=== PATIENT | female | born 1970 | race Caucasian/White ===

== ENCOUNTER 2018-07-29 20:11 | Emergency (ER) | payer BC ==
[2018-07-29] MEDS ORDERED: Sodium Chloride 0.9% 10 ML Syringe FLUSH PRN (20:35)
[2018-07-29] MEDS ORDERED: cefTRIAXone 2 GM Vial IVPUSH ONE (21:09)
--- NOTE | 2018-07-29 21:10 | EDM.PDOC ---
ED HPI GENERAL MEDICAL PROBLEM - General Chief Complaint: General Stated Complaint: heartburn Time Seen by Provider: 07/29/18 20:18 Source of Information: Reports: Patient History Limitations: Reports: No Limitations - History of Present Illness INITIAL COMMENTS - FREE TEXT/NARRATIVE: PtLonnie presents to ER with complaints of burning in her chest. She states that she has been experiencing this for several days. She complains of a mild cough. She has felt chills, and feels as though she is "coming down with something" as she is experiencing myalgias in her neck and shoulders. She states that the discomfort is respirophasic in nature, and is worse with palpation of the chest. Denies any nausea or vomiting. No shortness of breath. No hemoptysis. She states that she has had her flu shot this year. Onset Date: 07/27/18 Location: Reports: Chest Quality: Reports: Ache Severity: Severe Worsens with: Reports: Breathing, Movement Associated Symptoms: Denies: Nausea/Vomiting Epigastric Pain Score (Numeric/FACES): 8 - Related Data Allergies Allergy/AdvReac Type Severity Reaction Status Date / Time No Known Allergies Allergy Verified 07/29/18 20:18 Home Meds: Home Meds . [No Known Home Meds] 07/29/18 [History] Past Medical History - Past Surgical History GI Surgical History: Reports: Appendectomy Social & Family History - Tobacco Use Smoking Status *Q: Never Smoker ED ROS GENERAL - Review of Systems Review Of Systems: See Below Constitutional: Reports: No Symptoms HEENT: Reports: No Symptoms Respiratory: Reports: No Symptoms Cardiovascular: Reports: No Symptoms Endocrine: Reports: No Symptoms GI/Abdominal: Reports: No Symptoms : Reports: No Symptoms Musculoskeletal: Reports: Neck Pain, Shoulder Pain, Back Pain, Muscle Pain Skin: Reports: No Symptoms Neurological: Reports: No Symptoms Psychiatric: Reports: No Symptoms Hematologic/Lymphatic: Reports: No Symptoms Immunologic: Reports: No Symptoms ED EXAM, GENERAL - Physical Exam Exam: See Below Exam Limited By: No Limitations General Appearance: Alert, WD/WN, No Apparent Distress Respiratory/Chest: No Respiratory Distress, Decreased Breath Sounds (diminished in the bases), Other (chest is tender on palpation) Cardiovascular: Normal Peripheral Pulses, Regular Rate, Rhythm, No Edema, No Gallop, No JVD, No Murmur, No Rub Peripheral Pulses: 3+: Radial (L), Radial (R) GI/Abdominal: Normal Bowel Sounds, Soft, Non-Tender, No Organomegaly, No Distention, No Abnormal Bruit, No Mass (Female) Exam: Deferred Rectal (Female) Exam: Deferred Back Exam: Normal Inspection, Full Range of Motion, NT Extremities: Normal Inspection, Normal Range of Motion, Non-Tender, Normal Capillary Refill, No Pedal Edema Neurological: Alert, Oriented, CN II-XII Intact, Normal Cognition, Normal Gait, Normal Reflexes, No Motor/Sensory Deficits Psychiatric: Normal Affect, Normal Mood Skin Exam: Warm, Dry, Intact, Normal Color, No Rash EKG INTERPRETATION Rhythm: NSR [place]: Normal P-Wave: Present QRS: Normal ST-T: Normal QT: Normal Course - Vital Signs Last Recorded V/S: Last Vital Signs Temp 37.7 C 07/29/18 20:18 Pulse 95 07/29/18 20:18 Resp 18 07/29/18 20:18 BP 165/93 H 07/29/18 21:33 Pulse Ox 96 07/29/18 20:18 - Orders/Labs/Meds Orders: Active Orders 24 hr Category Date Time Status EKG Documentation Completion [RC] STAT Care 07/29/18 20:36 Active Chest 2V [CR] Stat Exams 07/29/18 20:35 Taken CULTURE BLOOD [BC] Stat Lab 07/29/18 21:00 Received CULTURE BLOOD [BC] Stat Lab 07/29/18 21:05 Received Blood Culture x2 Reflex Set [OM.PC] Stat Oth 07/29/18 20:38 Ordered Peripheral IV Insertion Adult [OM.PC] Routine Oth 07/29/18 20:36 Ordered Labs: Laboratory Tests 07/29/18 07/29/18 07/29/18 Range/Units 21:05 21:05 21:05 WBC 11.4 H (4.0-10.0) x10^3/uL RBC 4.69 (4.00-5.50) x10^6/uL Hgb 14.3 (12.0-16.0) g/dL Hct 41.8 (33.0-47.0) % MCV 89.1 (78.0-93.0) fL MCH 30.5 (26.0-32.0) pg MCHC 34.2 (32.0-36.0) g/dL RDW Coeff of Carly 12.4 (10.0-15.0) % Plt Count 291 (130-400) x10^3/uL Neut % (Auto) 72.4 (50.0-80.0) % Lymph % (Auto) 18.0 L (25.0-50.0) % Jess[place] % (Auto) 6.9 (2.0-11.0) % Eos % (Auto) 2.4 (0.0-4.0) % Baso % (Auto) 0.3 (0.2-1.2) % PT 10.6 (9.6-11.4) SEC INR 1.0 L (2.0-3.5) Sodium 139 (136-145) mmol/L Potassium 3.7 (3.5-5.1) mmol/L Chloride 101 (98-107) mmol/L Carbon Dioxide 29 (21-32) mmol/L Anion Gap 12.7 (10-20) mmol/L BUN 13 (7-18) mg/dL Creatinine 1.0 (0.55-1.02) mg/dL Est Cr Clr Drug Dosing TNP Estimated GFR (MDRD) 59 Glucose 103 (74-106) mg/dL Lactic Acid (0.4-2.0) mmol/L Calcium 9.7 (8.5-10.1) mg/dL Corrected Calcium 9.70 (8.5-10.1) mg/dL Phosphorus 4.9 H (2.6-4.7) mg/dL Magnesium 1.9 (1.8-2.4) mg/dL Total Bilirubin 0.6 (0.2-1.0) mg/dL AST 17 (15-37) U/L ALT 36 (14-59) U/L Alkaline Phosphatase 71 (46-116) U/L Troponin I < 0.017 (<=0.056) ng/mL C-Reactive Protein 3.7 H (<=0.9) mg/dL Total Protein 8.6 H (6.4-8.2) g/dL Albumin 4.0 (3.4-5.0) g/dL Globulin 4.6 Albumin/Globulin Ratio 0.87 07/29/18 Range/Units 21:05 WBC (4.0-10.0) x10^3/uL RBC (4.00-5.50) x10^6/uL Hgb (12.0-16.0) g/dL Hct (33.0-47.0) % MCV (78.0-93.0) fL MCH (26.0-32.0) pg MCHC (32.0-36.0) g/dL RDW Coeff of Carly (10.0-15.0) % Plt Count (130-400) x10^3/uL Neut % (Auto) (50.0-80.0) % Lymph % (Auto) (25.0-50.0) % Jess[place] % (Auto) (2.0-11.0) % Eos % (Auto) (0.0-4.0) % Baso % (Auto) (0.2-1.2) % PT (9.6-11.4) SEC INR (2.0-3.5) Sodium (136-145) mmol/L Potassium (3.5-5.1) mmol/L Chloride (98-107) mmol/L Carbon Dioxide (21-32) mmol/L Anion Gap (10-20) mmol/L BUN (7-18) mg/dL Creatinine (0.55-1.02) mg/dL Est Cr Clr Drug Dosing Estimated GFR (MDRD) Glucose (74-106) mg/dL Lactic Acid 0.8 (0.4-2.0) mmol/L Calcium (8.5-10.1) mg/dL Corrected Calcium (8.5-10.1) mg/dL Phosphorus (2.6-4.7) mg/dL Magnesium (1.8-2.4) mg/dL Total Bilirubin (0.2-1.0) mg/dL AST (15-37) U/L ALT (14-59) U/L Alkaline Phosphatase (46-116) U/L Troponin I (<=0.056) ng/mL C-Reactive Protein (<=0.9) mg/dL Total Protein (6.4-8.2) g/dL Albumin (3.4-5.0) g/dL Globulin Albumin/Globulin Ratio Meds: Medications Discontinued Medications Generic Name Dose Route Start Last Admin Trade Name Freq PRN Reason Stop Dose Admin Hydrocodone Bitart/Acetaminophen 1 packet 07/29/18 22:18 07/29/18 22:24 Take Home: Acetam/Hydrocodon 325-5 Mg, 5 Pack PO 07/29/18 22:19 1 packet ONETIME ONE Administration Ceftriaxone Sodium 2 gm 07/29/18 21:09 07/29/18 21:20 Rocephin IVPUSH 07/29/18 21:10 2 gm STAT ONE Administration Hydromorphone HCl 1 mg 07/29/18 22:17 07/29/18 22:29 Dilaudid IVPUSH 07/29/18 22:18 1 mg ONETIME ONE Administration Ketorolac Tromethamine 15 mg 07/29/18 22:17 07/29/18 22:26 Toradol IVPUSH 07/29/18 22:18 15 mg ONETIME ONE Administration Methylprednisolone Sodium Succinate 125 mg 07/29/18 22:17 07/29/18 22:28 Solu-Medrol IV 07/29/18 22:18 125 mg ONETIME ONE Administration Sodium Chloride 10 ml 07/29/18 20:35 Saline Flush FLUSH ASDIRECTED PRN Keep Vein Open - Radiology Interpretation Free Text/Narrative:: Increased opacification of RML on PA view. Departure - Departure Time of Disposition: 22:38 Disposition: Home, Self-Care 01 Condition: Good Clinical Impression: CAP (community acquired pneumonia), Pleurisy - Discharge Information Instructions: Acetaminophen; Hydrocodone tablets or capsules, Doxycycline tablets or capsules, Pleurisy, [id number], Prednisone tablets, Community- Acquired Pneumonia, Adult, Probiotics Referrals: Merle Key MD [Primary Care Provider] - Forms: ED Department Discharge Additional Instructions: Doxycycline 100mg twice daily Prednisone 40mg once daily [place] 5/325mg once every 4-6 hours as needed for pain Ibuprofen over the counter 200mg-3 tabs every 6 hours as needed for pain Off work tomorrow. Stay off of work until 25 hours after your last fever. - My Orders Last 24 Hours: My Active Orders 07/29/18 20:35 Chest 2V [CR] Stat 07/29/18 20:36 EKG Documentation Completion [RC] STAT Peripheral IV Insertion Adult [OM.PC] Routine 07/29/18 20:38 Blood Culture x2 Reflex Set [OM.PC] Stat 07/29/18 21:00 CULTURE BLOOD [BC] Stat 07/29/18 21:05 CULTURE BLOOD [BC] Stat - Assessment/Plan Last 24 Hours: My Active Orders 07/29/18 20:35 Chest 2V [CR] Stat 07/29/18 20:36 EKG Documentation Completion [RC] STAT Peripheral IV Insertion Adult [OM.PC] Routine 07/29/18 20:38 Blood Culture x2 Reflex Set [OM.PC] Stat 07/29/18 21:00 CULTURE BLOOD [BC] Stat 07/29/18 21:05 CULTURE BLOOD [BC] Stat Plan: Doxycycline 100mg twice daily Prednisone 40mg once daily [place] 5/325mg once every 4-6 hours as needed for pain Ibuprofen over the counter 200mg-3 tabs every 6 hours as needed for pain Off work tomorrow. Stay off of work until 25 hours after your last fever.
[2018-07-29 21:46] LABS: CHLORIDE,CL 101 mmol/L (98-107); SODIUM,NA 139 mmol/L (136-145)
[2018-07-29 21:54] LABS: ANION GAP 12.7 mmol/L (10-20)
[2018-07-29] MEDS ORDERED: HYDROmorphone 1 MG/ML Syringe IVPUSH ONE (22:17)
[2018-07-29] MEDS ORDERED: Ketorolac 15 MG/ML SDV IVPUSH ONE (22:17)
[2018-07-29] MEDS ORDERED: methylPREDNISolone Sodium Succinate 125 MG/2 ML SDV IV ONE (22:17)
[2018-07-29] MEDS ORDERED: Take Home: Acetaminophen/HYDROcodone 325-5 MG, 5 Tab Pack PO ONE (22:18)
--- NOTE | 2018-07-30 08:12 | CR ---
[id number] RAD/RAD Chest PA And Lateral EXAM: RAD Chest PA And Lateral INDICATION: SYNCOPE, BRADYCARDIA. COMPARISON: None. DISCUSSION: Cardiomediastinal silhouette is normal in size and contour. No infiltrate, effusion, pneumothorax, or edema. IMPRESSION: Negative examination of the chest. Brayden Perales MD 07/30/18 0811 Thank you for allowing us to participate in the care of your patient.
== END 2018-07-29 22:38 | disposition home or self-care (01) ==
LOC: VM.ED 20:11
DX: J18.9 Pneumonia, unspecified organism (principal); R09.1 Pleurisy
CPT/HCPCS: 36415; 71046; 80053; 83605; 83735; 84100; 84484; 85025; 85610; 86140; 87040; 87804; 87804-59; 93005; 96374; 96375; 99284; A9270-GY; J0696; J1170; J1885; J2930